=== PATIENT | female | born 1995 ===

== ENCOUNTER → 2022-01-20 | Outpatient (CLI) | payer OTHER ==
[2022-01-21 10:48] LABS: Candida species (DNA Probe) Negative (NEGATIVE); G. vaginalis (DNA Probe) Negative (NEGATIVE); T. vaginalis (DNA Probe) Negative (NEGATIVE)
== END | disposition home or self-care (01) ==
LOC: LAB 09:50 → LAB SHORT 09:50
PROVIDERS: Nurse Practitioner
DX: R30.0 Dysuria (principal)
CPT/HCPCS: 87086; 87480; 87510; 87660

== ENCOUNTER 2025-02-13 20:38 | Emergency (ER) | payer OTHER ==
[~2025-02-13] VITALS: Ht 180.3 cm; Wt 90.7 kg
[2025-02-13 20:49] VITALS: BP 142/101
[2025-02-13 21:06] LABS: Source, Urine Clean Catch
[2025-02-13 21:11] LABS: Bilirubin, Urine Neg (Neg); Glucose Qualitative, Urine Neg (Neg); Ketones, Urine Neg (Neg); Leukocyte Esterase, Urine 2+ (Neg); Protein, Urine Neg (Neg); Specific Gravity, Urine 1.005 (1.003-1.022); Urobilinogen, Urine NORM (Normal)
[2025-02-13 21:16] LABS: Color, Urine Pale Yellow (P-Yellow)
[2025-02-13 21:17] LABS: Red Blood Cells, Urine 0-2 /hpf (0-2)
[2025-02-13] MEDS ORDERED: CEPH500 PO (22:04)
== END 2025-02-13 22:24 | disposition home or self-care (01) ==
LOC: ER 20:38
PROVIDERS: Physician Assistant
DX: N39.0 Urinary tract infection, site not specified (principal); Z79.899 Other long term (current) drug therapy
CPT/HCPCS: 81001; 87077; 87086; 87186; 99283; A9270

== ENCOUNTER 2025-05-16 23:09 | Emergency (ER) | payer OTHER ==
[~2025-05-16] VITALS: Ht 180.3 cm; Wt 95.2 kg
[~2025-05-16 23:09] MED LIST: CEPH500 PO
[2025-05-16 23:14] VITALS: BP 147/86
[2025-05-16] MEDS ORDERED: Ondansetron HCl 2 MG / ML 2ML Vial IV ONE (23:30)
[2025-05-16] MEDS ORDERED: NS 1,000 ML IV SCH (23:30)
[2025-05-16 23:56] LABS: BASOPHILS ABSOLUTE AUTO 0.05 K/mm3 (0.00-0.23); BASOPHILS PERCENT AUTO 0 % (0-2); EOSINOPHILS ABSOLUTE AUTO 0.07 K/mm3 (0.00-0.68); EOSINOPHILS PERCENT AUTO 1 % (0-6); Hematocrit 39.1 % (33.0-51.0); Hemoglobin 13.2 g/dL (11.5-16.0); IMMATURE GRAN ABSOLUTE AUTO 0.04 K/mm3 (0.00-0.10); IMMATURE GRAN PERCENT AUTO 0 % (0-1); LYMPHOCYTES ABSOLUTE AUTO 2.29 K/mm3 (0.84-5.20); LYMPHOCYTES PERCENT AUTO 16 % (21-46); MONOCYTES ABSOLUTE AUTO 0.68 K/mm3 (0.16-1.47); MONOCYTES PERCENT AUTO 5 % (4-13); Mean Corpuscular HGB Conc 33.8 g/dL (31.5-36.5); Mean Corpuscular Volume 89 fL (80-100); NEUTROPHILS ABSOLUTE AUTO 11.66 K/mm3 (1.96-9.15); NEUTROPHILS PERCENT AUTO 79 % (41-73); NRBC ABSOLUTE 0.00 K/mm3 (0.00-0.02); NRBC Auto 0.0 /100 WBC (0.0-0.2); Platelet Count 335 K/mm3 (150-400); RDW Coefficient Variation 12.0 % (11.7-14.2); RDW Standard Deviation 39.3 fL (35.1-46.3)
[2025-05-17 00:16] LABS: Alanine Aminotransfer (ALT/SGP 55.0 U/L (12-78); Albumin, Blood 3.6 g/dL (3.4-5.0); Albumin/Globulin Ratio 0.9 (0.8-1.8); Anion Gap 11.0 mmol/L (3-11); Aspartate Aminotrans (AST/SGOT 35.0 U/L (12-37); Bilirubin, Total 0.4 mg/dL (0.1-1.0); Blood Urea Nitrogen 18.0 mg/dL (8-24); CO2, Blood 23.0 mmol/L (21-32); Calcium, Blood 8.7 mg/dL (8.5-10.1); Chloride, Blood 104.0 mmol/L (98-108); Creatinine, Blood 0.94 mg/dL (0.40-1.00); Globulin, Blood 4.2 g/dL (2.2-4.0); Glucose, Blood 92.0 mg/dL (70-99); Magnesium, Blood 2.1 mg/dL (1.6-2.4); Potassium, Blood 3.3 mmol/L (3.5-5.5); Sodium, Blood 135.0 mmol/L (136-145); Total Protein, Blood 7.8 g/dL (6.4-8.2)
[2025-05-17] MEDS ORDERED: ONDA4 PO (00:54)
== END 2025-05-17 01:02 | disposition home or self-care (01) ==
LOC: ER 23:09
PROVIDERS: Emergency Medicine
DX: R11.2 Nausea with vomiting, unspecified (principal); E87.1 Hypo-osmolality and hyponatremia; E87.6 Hypokalemia
CPT/HCPCS: 70450; 80053; 83690; 83735; 84703; 85025; 96361; 96374; 99284-25; A9270; J2405; J7030